=== PATIENT | female | born 1970 | race Hispanic/Latino ===

== ENCOUNTER 2023-08-13 08:07 | Emergency (ER) | payer OTHER ==
[~2023-08-13] VITALS: Ht 170.2 cm; Wt 88.5 kg
[2023-08-13 08:16] VITALS: BP 137/73; PULSE 70; RESP 18; TEMP 97.9; O2SAT 97
[2023-08-13] MEDS ORDERED: MOXI3DRO2 OP (08:43)
[2023-08-13 08:45] VITALS: BP 128/68; PULSE 82; RESP 18; O2SAT 98
== END 2023-08-13 08:47 | disposition home or self-care (01) ==
LOC: ER 08:07
DX: H10.33 Unspecified acute conjunctivitis, bilateral (principal); E11.9 Type 2 diabetes mellitus without complications; Z88.5 Allergy status to narcotic agent; Z98.890 Other specified postprocedural states
CPT/HCPCS: 99283